=== PATIENT | female | born 1940 ===

== ENCOUNTER → 2017-12-11 | Day surgery (SDC) | payer OTHER ==
[~2017-12-11] MED LIST: LOSARTAN POTASS50 MG; SYNTHROID88 MCG; ULTRACET PO
== END | disposition home or self-care (01) ==
LOC: ADM 12-06 14:00 → CIR.AMB 07:37
DX: N81.11 Cystocele, midline (principal); N81.5 Vaginal enterocele; N81.6 Rectocele